=== PATIENT | male | born 1940 | race American Indian/Alaskan Native ===

== ENCOUNTER 2017-03-16 17:09 | Emergency (ER) | payer OTHER, MEDICARE ==
[2017-03-16 17:23] LABS: Basophils % (Auto) 0.2 % (0.0-1.8); Eosinophils % (Auto) 1.6 % (0.0-4.3); Hematocrit 35.8 % (35.5-45.6); Hemoglobin 12.2 gm/dl (11.8-15.2); Mean Corpuscular HGB Conc 34 % (32-34); Mean Corpuscular Hemoglobin 34 pg (28-32); Mean Corpuscular Volume 100 fl (84-94); Platelet Count 162 K/mm3 (140-440); Red Blood Count 3.56 M/mm3 (3.65-5.03); Red Cell Distribution Width 12.6 % (13.2-15.2); White Blood Count 5.4 K/mm3 (4.5-11.0)
[2017-03-16 17:32] LABS: BUN/Creatinine Ratio 14.84; Chloride 99.3 mmol/L (98-107); INR 0.93 (0.87-1.13); Potassium 4.7 mmol/L (3.6-5.0)
--- NOTE | 2017-03-16 17:35 | Cat Scan Report ---
FINAL REPORT EXAM: CT HEAD/BRAIN WO CON HISTORY: neuro deficits \T\lt; 6hrs or sx present upon awakening TECHNIQUE: CT examination of the head without IV contrast PRIORS: None. FINDINGS: No acute air-fluid level visualized in the included air-filled sinuses. Bone windows demonstrate no acute fracture. There is ventricular and sulcal prominence compatible with global cerebrocortical atrophy. Low attenuation regions in the cerebral white matter, while nonspecific, are present and usually attributed to chronic ischemic gliosis. The differential includes demyelination in the appropriate clinical setting. The brain contains no mass, mass effect, hemorrhage, or acute infarct. There is no extra-axial intracranial bleed or brain bleed. There is no midline shift. Small CSF density lesion in right caudate body is suggestive of chronic lacunar infarct. IMPRESSION: No acute CVA, intracranial bleed, or brain mass Chronic appearing lacunar infarct in right caudate body
[2017-03-16] MEDS ORDERED: LOPRESSOR IV ONE (17:39)
[2017-03-16] MEDS ORDERED: ACTIVASE ONE (17:43)
[2017-03-16 17:45] LABS: Urine Drugs of Abuse Note Disclamer
[2017-03-16] MEDS ORDERED: ACTIVASE IV ONE ×2 (17:50)
[2017-03-16] MEDS ORDERED: NACL 0.9% IV ONE (17:50)
--- NOTE | 2017-03-16 17:51 | Emergency Department Report ---
HPI - General Chief Complaint: Neuro Symptoms/Deficit Time Seen by Provider: 03/16/17 17:37 - HPI HPI: This is a 76-year-old -[place] male with history of blood pressure, diabetes, hyperlipidemia who presents to the ED with right-sided weakness and significant slurred speech. Patient was last seen normal by , around 3:30, 335. Patient then got into a car around 4 PM, while starting to drive he notices this sudden right arm weakness, and inability to think straight and severely slurred speech. Patient then flagged down a neighbor, who called the ambulance and brought patient to ED. Patient is not on any blood thinners, denies any chest pain, shortness of breath, headache, change of vision, seizures recently or history of seizures. ED Past Medical Hx - Past Medical History Previous Medical History?: Yes Hx Hypertension: Yes Hx Heart Attack/AMI: Yes Hx Diabetes: Yes Hx Seizures: No Hx Asthma: Yes Hx COPD: Yes Hx Tuberculosis: (pt states he was exposed to TB and received medication from his MD for the) Hx Dementia: No Additional medical history: Previous [facility], hypertension - Surgical History Past Surgical History?: Yes Hx Coronary Stent: Yes Hx Pacemaker: No Hx Internal Defibrillator: No - Family History Family history: hypertension - Social History Smoking Status: Never Smoker Substance Use Type: None - Medications Home Medications: Home Medications Medication Instructions Recorded Confirmed Last Taken Type Aspirin EC [Aspirin Enteric Coated 81 mg PO QDAY 01/12/17 03/16/17 01/12/17 History TAB] AtorvaSTATin [Lipitor] 20 mg PO QHS 01/12/17 03/16/17 01/12/17 History Calcitriol [Rocaltrol] 0.5 mcg PO QDAY 01/12/17 03/16/17 01/12/17 History Cyanocobalamin (Vitamin B-12) 500 mcg SL DAILY 01/12/17 03/16/17 01/12/17 History [Vitamin B-12] Docusate Sodium [Colace CAP] 100 mg PO BID PRN 01/12/17 03/16/17 01/12/17 History Furosemide [Lasix TAB] 40 mg PO QDAY 01/12/17 03/16/17 01/12/17 History Pantoprazole [Protonix TAB] 40 mg PO QDAY 01/12/17 03/16/17 01/12/17 History Sennosides 8.6 mg PO DAILY 01/12/17 03/16/17 01/12/17 History Vitamin B Comp and C/FA/Zn Cit 0.8 mg PO DAILY 01/12/17 03/16/17 01/12/17 History [Dialyvite 800-Zinc 50 mg Tab] amLODIPine [Norvasc] 10 mg PO DAILY 01/12/17 03/16/17 01/12/17 History ED Review of Systems ROS: Stated complaint: POSSIBLE CVA Other details as noted in HPI Comment: All other systems reviewed and negative Constitutional: no symptoms reported Respiratory: no symptoms reported Cardiovascular: chest pain Neurological: weakness, numbness Physical Exam - Physical Exam Physical Exam: Gen. alert and oriented 3 in no distress Head atraumatic normocephalic Eyes PERR LA EOMI Chest regular rate and rhythm normal S1-S2 lungs clear bilaterally Abdomen soft nondistended Back no point tenderness paravertebral tenderness Neuro; right upper extremity weakness, slurred speech, NIH strokes ScaLe prior to TPA is 9 Psych normal mood. ED Course - Reevaluation(s) Reevaluation #1: 03/16/17 17:47 At 540 I discussed the case with Dr. Lr teleneurologist, who evaluated patient via video. Reevaluation #2: 03/16/17 18:11 Around 545 TPA was recommended to the patient, but blood pressure was 190/100. Hydralazine 20 mg IV given, to decrease blood pressure to below 180 in order for patient to receive TPA. Patient's family, is at bedside and agree with plan of giving TPA. Reevaluation #3: 03/16/17 18:39 15 minutes after tPA patient slightly more drowsy, no improvement. WIll obtain MRI, MRA amount per telemetry neurologist to rule out cerebral circulation thrombus. 03/16/17 23:[address] Kay about admitting patient, she states that this hospital doesn't admit patient WHO has received TPA, patient transferred to [facility] accepting doctor, Dr. Díaz. ED Medical Decision Making - Lab Data Result diagrams: 03/16/17 17:05 03/16/17 17:05 Critical Care Time: Yes Critical care time in (mins) excluding proc time.: 45 Critical care attestation.: If time is entered above; I have spent that time in minutes in the direct care of this critically ill patient, excluding procedure time. ED Disposition Clinical Impression: Acute CVA (cerebrovascular accident) Disposition: [id number] ANOTHER TYPE [facility]TH[facility]ARE Is pt being admited?: No Does the pt Need Aspirin: No Condition: Stable Referrals: PRIMARY CARE,MD [Primary Care Provider] - 3-5 Days
[2017-03-16] MEDS ORDERED: APRESOLINE ONE (18:02)
--- NOTE | 2017-03-16 18:05 | Admit Criteria Form ---
Admission Criteria Documentation: STROKE: ISCHEMIC Clinical Indications for Admission to Inpatient Care (Place 'X' for any and all applicable criteria): Admission is indicated for ANY ONE of the following(1)(2)(3)(4): [X]I. Acute stroke Extended stay beyond goal length of stay may be needed for(1)(2) [ ]a) Major deficit or clinical deterioration [ ]b) Hospital-acquired infection (eg, urinary tract infection, pneumonia) [ ]c) Embolic cause of stroke [ ]d) Venous thromboembolism(9) [ ]e) Seizures [ ]f) Bleeding (eg, cerebral) [ ]g) Increased intracranial pressure [ ]h) Comorbidities [ ]i) Surgical intervention The original [facility] content created by [employer] has been revised. The portions of the content which have been revised are identified through the use of italic text or in bold, and [facility] has neither reviewed nor approved the modified material. All other unmodified content is copyright [facility]. Please see references footnoted in the original [facility] edition 2016 Admission Criteria Met: Yes
[2017-03-16] MEDS ORDERED: NACL 0.9% 1000 ML 1,000 ML ONE (18:17)
[2017-03-16] MEDS ORDERED: APRESOLINE IV ONE (18:19)
[2017-03-16] MEDS ORDERED: NACL 0.9% 1000 ML 1,000 ML IV ONE (18:29)
--- NOTE | 2017-03-16 20:45 | Magnetic Resonance Report ---
FINAL REPORT PROCEDURE: MR MRA/MRV HEAD WO CON TECHNIQUE: Unenhanced 3D [id number] images of the vessels of the [place] are obtained. HISTORY: right sided weakness, cva, COMPARISON: No prior studies are available for comparison. FINDINGS: Left vertebral artery is dominant. Distal right vertebral artery is very poorly seen possibly due to congenital atresia or high-grade stenosis. There is only intermittent visualization of the basilar artery possibly due to significant stenosis in its proximal and mid section. Bilateral posterior communicating arteries are seen. Small bilateral P1 segments are suspected. Possible areas of significant stenosis are seen in the right ICA in the carotid canal, possibly in the 70-80 percent range. Correlation with CTA may be useful. Possible 50 percent stenosis is seen in the right ICA in the supraclinoid region. Possible 50-60 percent stenosis is seen in the distal left ICA near the orbital apex. No aneurysm formation is seen. IMPRESSION: There is poor visualization of the distal right vertebral artery which may be due to congenital atresia or high-grade stenosis. Likely areas of significant stenosis are seen in the proximal and mid basilar artery Possible 70 80 percent stenosis is seen in the right ICA in the carotid canal with likely 50 percent stenosis in the supraclinoid region of the distal right ICA. Possible 50-60 percent stenosis is seen in the left ICA near the orbital apex. Further evaluation of these findings with CTA may be useful.
--- NOTE | 2017-03-16 20:53 | Magnetic Resonance Report ---
FINAL REPORT PROCEDURE: MR BRAIN WO CON TECHNIQUE: Magnetic resonance imaging of the brain was performed without contrast material. HISTORY: stroke COMPARISON: No prior studies are available for comparison. FINDINGS: Skull base and calvarium: Normal. Paranasal sinuses: The visualized paranasal sinuses are clear. Cerebellum: No evidence of hemorrhage, ischemia or mass. Brainstem: No evidence of hemorrhage, ischemia or mass. Cerebrum: Moderate degree bilateral periventricular nonspecific white matter hyperintense signal abnormality is identified on T2 weighted and FLAIR images. Diffusion-weighted images failed to demonstrate any focal hyperintense signal abnormalities.. Ventricles: Ventricles are prominent consistent with mild cerebral atrophy appropriate for patient's age.. Pituitary gland and sella: Normal. Globes and orbits: Normal. Vasculature: Normal arterial and venous flow voids. Other: None. IMPRESSION: No acute intracranial abnormality. Cerebral atrophy appropriate for patient's age Nonspecific central white matter signal abnormality is consistent with chronic microangiopathy
[2017-03-16 23:22] VITALS: BP 173/69
== END 2017-03-17 00:08 | disposition other institution (70) ==
LOC: ED 17:09
DX: I63.9 Cerebral infarction, unspecified (principal); I10 Essential (primary) hypertension; E11.9 Type 2 diabetes mellitus without complications; J45.909 Unspecified asthma, uncomplicated; J44.9 Chronic obstructive pulmonary disease, unspecified
CPT/HCPCS: 36415; 37212; 70450; 70544; 70551; 80048; 80307; 82962; 84484; 85025; 85610; 85670; 85730; 87086; 93005; 93010; 96361; 96374; 96375; 99291; J0360; J2997; J7030